=== PATIENT | female | born 1990 | race American Indian/Alaskan Native ===

== ENCOUNTER 2020-08-05 15:20 | Emergency (ER) | payer SELFPAY ==
[2020-08-05 15:53] VITALS: BP 152/99
--- NOTE | 2020-08-05 16:26 | Emergency Department Report ---
ED Female HPI - General Chief complaint: Medical Clearance Stated complaint: PAINFUL BUMPS ON VAGINA Time Seen by Provider: 08/05/20 16:10 Source: patient Mode of arrival: Ambulatory Limitations: No Limitations - History of Present Illness Initial comments: 29-year-old female presents to the ER today complaint of a painful vaginal rash for the past 2 weeks. Patient states that when she urinates it causes the rash to burn. She denies any associated vaginal discharge, vaginal itching or swelling. She states that she is currently on her menstrual cycle. She states that she does have an on and off again sexual partner. She reports a history of chlamydia and gonorrhea in the past but no other sexual transmitted disease. Reports no abdominal pain, UTI symptoms or any other symptoms at this time. MD Complaint: other -: week(s) (2-week) - Related Data Previous Rx's Medication Instructions Recorded Last Taken Type Ibuprofen [Motrin] 800 mg PO Q8HR PRN #30 tablet 08/05/20 Unknown Rx Mupirocin/Lidocaine [Lidocaine 1 applic TP TID #30 oint...g. 08/05/20 Unknown Rx 2%-Mupirocin 2% Oint] Valacyclovir HCl [Valtrex] 1,000 mg PO BID #7 tablet 08/05/20 Unknown Rx Allergies Allergy/AdvReac Type Severity Reaction Status Date / Time No Known Allergies Allergy Unverified 08/05/20 15:49 ED Review of Systems ROS: Stated complaint: PAINFUL BUMPS ON VAGINA Other details as noted in HPI Comment: All other systems reviewed and negative Genitourinary: dysuria. denies: urgency, frequency, hematuria, discharge, a bnormal menses, dyspareunia Skin: rash ED Past Medical Hx - Past Medical History Previous Medical History?: No - Surgical History Additional Surgical History: LUMPECTOMY - Medications Home Medications: Home Medications Medication Instructions Recorded Confirmed Last Taken Type Ibuprofen [Motrin] 800 mg PO Q8HR PRN #30 tablet 08/05/20 Unknown Rx Mupirocin/Lidocaine [Lidocaine 1 applic TP TID #30 oint...g. 08/05/20 Unknown Rx 2%-Mupirocin 2% Oint] Valacyclovir HCl [Valtrex] 1,000 mg PO BID #7 tablet 08/05/20 Unknown Rx ED Physical Exam - General Limitations: No Limitations General appearance: alert, in no apparent distress, obese - Head Head exam: Present: atraumatic, normocephalic, normal inspection - Respiratory Respiratory exam: Absent: respiratory distress - Cardiovascular Cardiovascular Exam: Present: regular rate - GI/Abdominal GI/Abdominal exam: Present: soft. Absent: distended, tenderness - External exam: Present: lesions (Multiple shallow ulcerated lesions noted around the introitus and perineal area). Absent: swelling, lacerations, ecchymosis Speculum exam: Present: vaginal bleeding (Mild, patient currently on her menstrual cycle). Absent: erythema, vaginal discharge, cervical discharge, tissue, laceration - Neurological Exam Neurological exam: Present: alert, oriented X3, CN II-XII intact - Psychiatric Psychiatric exam: Present: normal affect, normal mood - Skin Skin exam: Present: intact ED Course Vital Signs 08/05/20 15:52 Temperature 97.9 F Pulse Rate 77 Respiratory 22 Rate Blood Pressure 152/99 [Right] O2 Sat by Pulse 100 Oximetry ED Medical Decision Making - Medical Decision Making Rash in the pelvic area is concerning for genital herpes. Wet prep negative for trichomoniasis, BV or yeast. GC pending. Urinalysis negative for UTI. hCG is negative. Discussed suspected diagnosis with patient. She will be started on Valtrex to take twice per day. I also recommended that she follows up with the [facility] who will be able to the HSV 1 and 2 testing to confirm diagnosis. Patient expressed understanding of instructions and agree with plan. She is well-appearing, she is not toxic, she is not in any acute distress. Her vital signs have been stable. She was stable at time of discharge Critical care attestation.: If time is entered above; I have spent that time in minutes in the direct care of this critically ill patient, excluding procedure time. ED Disposition Clinical Impression: Genital herpes Disposition: DC-01 TO HOME OR SELFCARE Is pt being admited?: No Does the pt Need Aspirin: No Condition: Stable Instructions: Genital Herpes Additional Instructions: It is important that you follow up with OBGYN as discussed for follow up as discussed. Take the valtrex as instructed. Take motrin as instructed. Return to ED if worse. Prescriptions: Mupirocin/Lidocaine [Lidocaine 2%-Mupirocin 2% Oint] 1 applic TP TID #30 oint...g. Ibuprofen [Motrin] 800 mg PO Q8HR PRN #30 tablet PRN Reason: Pain , Severe (7-10) Valacyclovir HCl [Valtrex] 1,000 mg PO BID #7 tablet Referrals: [facility] [Provider Group] - 3-5 Days BREONNA ENRIQUEZ MD [Staff Physician] - 3-5 Days Time of Disposition: 19:54
[2020-08-05 16:49] LABS: Bacteria,Urine 1+ /HPF (Negative); Bilirubin,Urine NEG (Negative); Blood,Urine LG (Negative); Color,Urine Yellow (Yellow); Mucus,Urine FEW /HPF; Protein,Urine <15 mg/dL mg/dL (Negative); Urobilinogen,Urine < 2.0 mg/dL (<2.0)
[2020-08-05 17:00] LABS: HCG Qualitative,Urine Negative (Negative)
[2020-08-05] MEDS ORDERED: valACYclovir 500 MG TAB PO ONE (19:59)
[2020-08-05] MEDS ORDERED: IBUPROFEN 800 MG TAB PO ONE (19:59)
== END 2020-08-05 21:00 | disposition home or self-care (01) ==
LOC: ED 15:20
DX: A60.00 Herpesviral infection of urogenital system, unspecified (principal); Z79.899 Other long term (current) drug therapy; Z98.890 Other specified postprocedural states
CPT/HCPCS: 81001; 81025; 87210; 87591; 99283

== ENCOUNTER 2021-04-05 09:30 | Emergency (ER) | payer SELFPAY ==
[2021-04-05 09:39] VITALS: BP 142/87
[2021-04-05] MEDS ORDERED: predniSONE 50 MG TAB PO ONE (09:56)
[2021-04-05] MEDS ORDERED: IBUPROFEN 600 MG TAB PO ONE (09:56)
--- NOTE | 2021-04-05 09:56 | Emergency Department Report ---
ED ENT HPI - General Chief complaint: Sore Throat Stated complaint: SORE THROAT Time Seen by Provider: 04/05/21 09:43 Source: patient Mode of arrival: Ambulatory Limitations: No Limitations - History of Present Illness Initial comments: 30-year-old female presents to the ER today with complaints of sore throat. Patient states that symptoms started about 2 days ago. She reports pain with swallowing. She denies any fever, chills, URI symptoms or cough. She states that she was around a coworker who had symptoms of sore throat but she never got tested for strep. She denies any other apparent ill contacts or recent travel. She denies any difficulty breathing, trismus or drooling. MD complaint: sore throat - Related Data Previous Rx's Medication Instructions Recorded Last Taken Type Mupirocin/Lidocaine [Lidocaine 1 applic TP TID #30 oint...g. 08/05/20 Unknown Rx 2%-Mupirocin 2% Oint] Valacyclovir HCl [Valtrex] 1,000 mg PO BID #7 tablet 08/05/20 Unknown Rx Amoxicillin [Trimox CAP] 500 mg PO Q12H #20 capsule 04/05/21 Unknown Rx Ibuprofen [Motrin 800 MG tab] 800 mg PO Q8HR PRN #30 tablet 04/05/21 Unknown Rx predniSONE [Deltasone] 50 mg PO QDAY #4 tab 04/05/21 Unknown Rx Allergies Allergy/AdvReac Type Severity Reaction Status Date / Time No Known Allergies Allergy Unverified 08/05/20 15:49 ED Dental HPI - General Chief complaint: Sore Throat Stated complaint: SORE THROAT Time Seen by Provider: 04/05/21 09:43 Source: patient Mode of arrival: Ambulatory Limitations: No Limitations - Related Data Previous Rx's Medication Instructions Recorded Last Taken Type Mupirocin/Lidocaine [Lidocaine 1 applic TP TID #30 oint...g. 08/05/20 Unknown Rx 2%-Mupirocin 2% Oint] Valacyclovir HCl [Valtrex] 1,000 mg PO BID #7 tablet 08/05/20 Unknown Rx Amoxicillin [Trimox CAP] 500 mg PO Q12H #20 capsule 04/05/21 Unknown Rx Ibuprofen [Motrin 800 MG tab] 800 mg PO Q8HR PRN #30 tablet 04/05/21 Unknown Rx predniSONE [Deltasone] 50 mg PO QDAY #4 tab 04/05/21 Unknown Rx Allergies Allergy/AdvReac Type Severity Reaction Status Date / Time No Known Allergies Allergy Unverified 08/05/20 15:49 ED Review of Systems ROS: Stated complaint: SORE THROAT Other details as noted in HPI Comment: All other systems reviewed and negative Constitutional: denies: chills, fever ENT: throat pain. denies: dental pain, hearing loss, epistaxis, congestion Respiratory: denies: cough, orthopnea, shortness of breath, SOB with exertion, SOB at rest, stridor, wheezing Cardiovascular: denies: chest pain, palpitations, dyspnea on exertion, edema, syncope, paroxysmal nocturnal dyspnea Gastrointestinal: denies: abdominal pain, nausea, diarrhea, constipation, hematemesis, melena, hematochezia Genitourinary: denies: urgency, dysuria, discharge Skin: denies: rash, lesions, change in color, change in hair/nails, pruritus Neurological: denies: headache, weakness, numbness, paresthesias, confusion, abnormal gait, vertigo Psychiatric: denies: anxiety, depression, auditory hallucinations, visual hallucinations, homicidal thoughts, suicidal thoughts ED Past Medical Hx - Past Medical History Previous Medical History?: No - Surgical History Past Surgical History?: No Additional Surgical History: LUMPECTOMY - Medications Home Medications: Home Medications Medication Instructions Recorded Confirmed Last Taken Type Mupirocin/Lidocaine [Lidocaine 1 applic TP TID #30 oint...g. 08/05/20 Unknown Rx 2%-Mupirocin 2% Oint] Valacyclovir HCl [Valtrex] 1,000 mg PO BID #7 tablet 08/05/20 Unknown Rx Amoxicillin [Trimox CAP] 500 mg PO Q12H #20 capsule 04/05/21 Unknown Rx Ibuprofen [Motrin 800 MG tab] 800 mg PO Q8HR PRN #30 tablet 04/05/21 Unknown Rx predniSONE [Deltasone] 50 mg PO QDAY #4 tab 04/05/21 Unknown Rx ED Physical Exam - General Limitations: No Limitations General appearance: alert, in no apparent distress, obese - Head Head exam: Present: atraumatic, normocephalic, normal inspection - Eye Eye exam: Present: normal appearance, PERRL, EOMI Pupils: Present: normal accommodation - ENT ENT exam: Present: mucous membranes moist - Expanded ENT Exam Expanded Mouth exam: Present: muffled voice (mild). Absent: drooling, trismus, tongue normal, tongue elevation, laceration Throat exam: Positive: normal inspection, tonsillar erythema, tonsillomegaly. Negative: tonsillar exudate, R peritonsillar mass, L peritonsillar mass - Neck Neck exam: Present: normal inspection, full ROM. Absent: meningismus - Respiratory Respiratory exam: Present: normal lung sounds bilaterally. Absent: respiratory distress, wheezes, rales, rhonchi - Cardiovascular Cardiovascular Exam: Present: regular rate, normal rhythm, normal heart sounds - Neurological Exam Neurological exam: Present: alert, oriented X3, CN II-XII intact, normal gait - Psychiatric Psychiatric exam: Present: normal affect, normal mood - Skin Skin exam: Present: intact ED Course Vital Signs 04/05/21 09:36 Temperature 98 F Pulse Rate 106 H Respiratory 16 Rate Blood Pressure 142/87 [Left] O2 Sat by Pulse 98 Oximetry ED Medical Decision Making - Medical Decision Making Rapid strep negative but given pt physical exam, I am still concerned for possible strep. She has no trismus or drooling. She is able to control secretions. No stridor. Airway is intact. No evidence of peritonsillar abscess on exam. Discussed results with patient. Discussed concern for strep with patient. She will be discharged home with amoxicillin as well as meds for pain and inflammation. Recommend lots of fluids and a soft diet. Patient expressed understanding and agree with plan. Patient stable at time of discharge. Critical care attestation.: If time is entered above; I have spent that time in minutes in the direct care of this critically ill patient, excluding procedure time. ED Disposition Clinical Impression: Tonsillitis Disposition: HOME / SELF CARE / HOMELESS Is pt being admited?: No Does the pt Need Aspirin: No Condition: Stable Instructions: Tonsillitis, [id number] Additional Instructions: I recommend that you take the amoxicillin as prescribed as well as the motrin and prednisone for pain and swelling. I recommend that you drink lots of fluids, and you can do a soft diet. Follow-up closely with your PCP. Return to the ER if your symptoms changes or worsens in any way. Prescriptions: predniSONE [Deltasone] 50 mg PO QDAY #4 tab Ibuprofen [Motrin 800 MG tab] 800 mg PO Q8HR PRN #30 tablet PRN Reason: Pain , Severe (7-10) Amoxicillin [Trimox CAP] 500 mg PO Q12H #20 capsule Referrals: [facility] [Provider Group] - 3-5 Days Forms: Work/School Release Form(ED) Time of Disposition: 10:31 Print Language: TELUGU
== END 2021-04-05 10:57 | disposition home or self-care (01) ==
LOC: ED 09:30
DX: J03.90 Acute tonsillitis, unspecified (principal); Z79.899 Other long term (current) drug therapy
CPT/HCPCS: 87116; 87430; 99283; J7512

== ENCOUNTER 2021-12-08 18:34 | Emergency (ER) | payer OTHER ==
[2021-12-08 19:05] VITALS: BP 152/89
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
[2021-12-09] MEDS ORDERED: HYDROcodone/ACETAMINOPHEN 5-325 MG TAB PO STA (03:46)
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
--- NOTE | 2021-12-11 18:48 | Electrocardiograph Report ---
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
== END 2021-12-09 05:20 | disposition home or self-care (01) ==
LOC: ED 18:34
DX: S93.491A Sprain of other ligament of right ankle, initial encounter (principal); M54.50 Low back pain, unspecified; R10.9 Unspecified abdominal pain; Z79.899 Other long term (current) drug therapy; V87.7XXA Person injured in collision between other specified motor vehicles (traffic), initial encounter; Y93.89 Activity, other specified; Y92.488 Other paved roadways as the place of occurrence of the external cause; Y99.8 Other external cause status
CPT/HCPCS: 72100; 93005; 99283